=== PATIENT | female | born 2000 | race Two or more races ===

== ENCOUNTER 2022-05-03 00:49 | Inpatient (IN) ==
[2022-05-03] MEDS ORDERED: D5 1/2 NS 1,000 ML 1,000 ML IV ONE (01:27)
[2022-05-03 01:30] VITALS: BMI 26.9
[2022-05-03 01:32] LABS: BILIRUBIN,URINE NEGATIVE (NEGATIVE); BLOOD/HEMOGLOBIN,URINE 5+ (NEGATIVE); GLUCOSE, URINE NEGATIVE (NEGATIVE); KETONES,URINE NEGATIVE (NEGATIVE); LEUKOCYTE ESTERASE ,URINE 2+ (NEGATIVE); NITRITES,URINE NEGATIVE (NEGATIVE); PROTEIN,URINE NEGATIVE (NEGATIVE); UROBILINOGEN,URINE NORMAL (NORMAL)
[2022-05-03 01:34] LABS: APPEARANCE,URINE SLIGHTLY HAZY (CLEAR); COLOR,URINE PALE YELLOW (YELLOW)
[2022-05-03 01:39] LABS: AMNISURE ROM TEST THERE IS A RUPTURE (NO RUPTURE)
[2022-05-03 01:40] LABS: BACTERIA,URINE TRACE /HPF (NEGATIVE); SQUAMOUS EPITHELIAL CELL,UR MANY /HPF (NEGATIVE)
[2022-05-03 01:59] LABS: BASOPHILS # (AUTO) 0.1 X10^3/uL (0.0-0.1); BASOPHILS % (AUTO) 0.9 % (0.2-1.0); EOSINOPHILS # (AUTO) 0.5 x10^3/uL (0.0-0.2); EOSINOPHILS % (AUTO) 3.1 % (0.9-2.9); HEMATOCRIT 33.4 % (36.0-47.0); LYMPHOCYTES % (AUTO) 25.7 % (21.0-51.0); MEAN CORPUSCULAR HEMOGLOBIN 25.8 pg (27.0-34.0); MEAN CORPUSCULAR VOLUME 78.2 fL (80.0-100.0); MEAN PLATELET VOLUME 9.4 fL (7.4-11.0); MONOCYTES # (AUTO) 0.9 x10^3/uL (0.3-0.8); MONOCYTES % (AUTO) 5.8 % (0.0-13.0); NEUTROPHILS # (AUTO) 10.1 x10^3/uL (2.2-4.8); NEUTROPHILS % (AUTO) 64.5 % (42.0-75.0); RED BLOOD COUNT 4.27 X10^6/uL (3.5-5.4); RED CELL DISTRIBUTION WIDTH 16.4 % (11.6-16.5); WHITE BLOOD COUNT 15.7 X10^3/uL (3.6-10.0)
[2022-05-03] MEDS ORDERED: D5 1/2 NS 1,000 ML 1,000 ML IV SCH ×2 (02:00→03:00)
[2022-05-03 02:01] LABS: ALANINE AMINOTRANSFERASE 9 Units/L (12-78); ALBUMIN 2.7 g/dL (3.4-5.0); ALKALINE PHOSPHATASE 279 Units/L (45-150); ASPARTATE AMINO TRANSFERASE 11 Units/L (15-37); BLOOD UREA NITROGEN 7 mg/dL (7-18); CALCIUM 8.2 mg/dL (8.5-10.1); CARBON DIOXIDE 22.6 mmol/L (21-32); CHLORIDE 105 mmol/L (98-107); COR CA(FOR HYPOALB) 9.2 mg/dL (8.5-10.1); SODIUM 138 mmol/L (136-145); TOTAL PROTEIN 7.3 g/dL (6.4-8.2); eGFR NON BLACK RACES > 60 (>60)
[2022-05-03] MEDS ORDERED: PHENERGAN INJ 25 MG IM PRN (02:09)
[2022-05-03] MEDS ORDERED: REGLAN INJ 10 MG VIAL IVP PRN (02:09)
[2022-05-03] MEDS ORDERED: PITOCIN IVP ONE (02:09)
[2022-05-03] MEDS ORDERED: LR 1,000 ML IV 1,000 ML IV ONE (02:12)
[2022-05-03] MEDS ORDERED: NS 100 ML IV 100 ML ONE (02:12)
[2022-05-03] MEDS ORDERED: AMPICILLIN VIAL 2 GRAM ONE (02:12)
[2022-05-03] MEDS: LR 1,000 ML IV 1,000 ML with PITOCIN 20 UNITS IV SCH ×6 (03:00→19:13)
[2022-05-03] MEDS ORDERED: AMPICILLIN VIAL 2 GRAM 2 G in NS 100 ML IV + SPIKE MINIBAG* 100 ML IV SCH (03:00)
[2022-05-03] MEDS ORDERED: D5 1/2 NS 1,000 ML 1,000 ML with PITOCIN 20 UNITS IV SCH ×2 (03:00)
[2022-05-03] MEDS ORDERED: MILK OF MAGNESIA PO PRN (04:03)
[2022-05-03] MEDS ORDERED: AMBIEN PO PRN (04:03)
[2022-05-03] MEDS ORDERED: MOTRIN TAB 800 MG PO PRN (04:03)
[2022-05-03] MEDS ORDERED: DERMOPLAST PAIN RELIEF SPRAY TOP PRN (04:03)
[2022-05-03] MEDS ORDERED: ADACEL or BOOSTRIX TDaP VACCINE IM ONE (04:03)
[2022-05-03 05:19] LABS: HEMATOCRIT 32.7 % (36.0-47.0); HEMOGLOBIN 10.7 g/dL (12.0-16.0)
[2022-05-03] MEDS: PRENATAL PLUS PO SCH (08:29)
[2022-05-04] MEDS: LR 1,000 ML IV 1,000 ML with PITOCIN 20 UNITS IV SCH ×2 (03:22)
[2022-05-04] MEDS: PRENATAL PLUS PO SCH (09:45)
[2022-05-04 12:11] VITALS: BP 93/47
[2022-05-06 15:53] LABS: SICKLE CELL SOLUBILITY Not Performed
== END 2022-05-04 11:35 | disposition home or self-care (01) | DRG 807 ==
LOC: ER 01:11 → LD 01:49 → MED/SURG 04:09
PROVIDERS: ADMIT Obstetrics & Gynecology Obstetrics; ATTEND Obstetrics & Gynecology Obstetrics
DX: O26.893 Other specified pregnancy related conditions, third trimester; Z20.822 Contact with and (suspected) exposure to COVID-19; O70.1 Second degree perineal laceration during delivery; Z37.0 Single live birth; Z3A.37 37 weeks gestation of pregnancy